=== PATIENT | female | born 1940 | race Two or more races ===

== ENCOUNTER 2017-07-22 14:51 | Emergency (ER) | payer OTHER ==
[~2017-07-22] VITALS: Ht 157.5 cm; Wt 65.0 kg
[2017-07-22] MEDS ORDERED: OMEP40CA2 PO (15:11)
[2017-07-22] MEDS ORDERED: BENA40TA7 PO (15:11)
[2017-07-22] MEDS ORDERED: SIMV40TA2 PO (15:11)
[2017-07-22] MEDS ORDERED: METF500T13 PO (15:11)
[2017-07-22] MEDS ORDERED: GLIP10TA6 PO (15:11)
[2017-07-22] MEDS ORDERED: LEVO75TA4 PO (15:11)
[2017-07-22] MEDS ORDERED: NS 1,000 ML IV ONE (16:15)
[2017-07-22] MEDS ORDERED: ACETAMINOPHEN 325 MG TAB PO ONE (16:15)
[2017-07-22] MEDS ORDERED: KETOROLAC 30 MG/ML VIAL (J1885) IV ONE (16:15)
--- NOTE | 2017-07-22 16:33 | REP ---
Chest two views HISTORY: Fever Comparison: None The lungs are clear. The heart is normal in size. The pulmonary vasculature is normal in appearance. The bony structure is intact. IMPRESSION: No acute disease. Signed by Hema Mccallum MD 07/22/2017 04:24 P
[2017-07-22 17:03] LABS: BASO % 0.3 % (0.0-1.0); EOS # 0.1 K/mm3 (0.0-0.50); EOS % 1.2 % (0.0-3.0); LARGE UNSTAINED CELL # 0.1 K/mm3 (0.0-0.4); LARGE UNSTAINED CELL % 0.6 % (0.0-4.0); LYMPH # 0.3 K/mm3 (1.5-4.5); LYMPH % 2.8 % (24.0-44.0); MEAN CORPUSCULAR HGB CONC 32.8 g/dl (32.0-36.5); MEAN CORPUSCULAR VOLUME 88.4 fl (80.0-96.0); MONO # 0.2 K/mm3 (0.0-0.8); MONO % 2.4 % (0.0-5.0); NEUTROPHILS # 8.9 K/mm3 (1.8-7.7); NEUTROPHILS % 92.6 % (36.0-66.0); PLATELET COUNT, AUTOMATED 198 k/mm3 (150-450); RED CELL DISTRIBUTION WIDTH 13.7 % (11.5-14.5); WHITE BLOOD COUNT 9.6 K/mm3 (4.0-10.0)
[2017-07-22 17:27] LABS: CALCIUM LEVEL 8.6 MG/DL (8.8-10.2); CREATININE FOR GFR 1.17 MG/DL (0.55-1.02); GLOMERULAR FILTRATION RATE 47.7 (>39); POTASSIUM SERUM 3.7 MEQ/L (3.5-5.1)
--- NOTE | 2017-07-22 17:54 | REP ---
CT Head without contrast HISTORY: Headache COMPARISON: None There is no intraparenchymal hemorrhage, acute infarct, mass or midline shift. The ventricular system is normal in appearance. A small arachnoid cyst is present overlying the anterior left frontal lobe. This measures 2.4 cm in transverse by 1.1 cm in AP dimensions. There is no subdural fluid l collection. There is no fracture. The visualized sinuses are clear. IMPRESSION: 1. There is no intracranial lesion. 2. There is a small arachnoid cyst overlying the anterior left frontal lobe. Signed by Hema Mccallum MD 07/22/2017 05:46 P
[2017-07-22] MEDS ORDERED: diphenhydrAMINE INJ 50MG/ML VIAL (J1200) IV STA (19:33)
[2017-07-22] MEDS ORDERED: ISOVUE-370 76% 100ML VIAL (Q9967) As Ordered ONE (19:41)
[2017-07-22] MEDS ORDERED: CIPROFLOXACIN 500 MG TAB PO ONE (19:45)
[2017-07-22] MEDS ORDERED: METOCLOPRAMIDE INJ 10MG/2ML VIAL (J2765) IV ONE (19:45)
--- NOTE | 2017-07-22 20:10 | REPUSA ---
Clinical history: headache. Technique: Multiple axial CT images were obtained through the head after a bolus of nonionic intraven ous contrast. Coronal and sagittal reconstructed images were also obtained. Findings: The intracerebral arterial structures including the [place], as well as the distal carotid and vertebrobasilar arterial systems, demonstrate normal caliber and contour. There is no ev idence of aneurysm, stenosis, or thrombosis. No abnormal enhancing mass lesions are seen within the b rain. The ventricles and sulci are symmetric bilaterally. There is no midline shift, mass effect, or extra-axial fluid collection. The osseous structures are unremarkable. The visualized paranasal sinus es and mastoid air cells are clear. Impression: Unremarkable CT angiogram of the head.
[2017-07-22] MEDS ORDERED: CIPR-249 PO (20:21)
[2017-07-22 20:25] VITALS: BP 122/54
--- NOTE | 2017-07-23 07:58 | ED PDOC ---
Post-Departure Follow-Up dr rogel faxed formal report of ct head for fu Mil Valderrama MD Jul 23, 2017 07:58
--- NOTE | 2017-07-24 08:21 | ECGEPIP ---
Stationary ECG Study [facility] - ED Test Date: 2017-07-22 Pat Name: CHRIS MORALES Department: Room: - Gender: F Buying Intern: kelsey : 1940 Requested By: ZENY Doyle PA-C Order Number: [id number] Reading MD: Sophia Gr Measurements Intervals Picher Rate: 89 P: -1 SD: 152 QRS: 30 QRSD: 92 T: 17 QT: 361 QTc: 441 Interpretive Statements SINUS RHYTHM NSTTW ABNORMALITY NO PRIOR FOR COMPARISON Electronically Signed On 07-24-2017 8:21:01 EDT by Sophia Gr
== END 2017-07-22 20:32 | disposition home or self-care (01) ==
LOC: M ED 14:51
DX: N30.90 Cystitis, unspecified without hematuria (principal); R51 Headache; G93.0 Cerebral cysts; E11.9 Type 2 diabetes mellitus without complications; I10 Essential (primary) hypertension; Z79.84 Long term (current) use of oral hypoglycemic drugs; Z79.899 Other long term (current) drug therapy
CPT/HCPCS: 70450; 70496; 71020; 80048; 81001; 82550; 82553; 84443; 84484; 85025; 87040; 87077; 87086; 87186; 87880; 93005; 96374; 96375; 99284; G0463; J1200; J1885; J2765; Q9967

== ENCOUNTER → 2017-07-22 | Outpatient (REF) | payer OTHER ==
[~2017-07-22] MED LIST: BACT800T5 PO; BENA40TA7 PO; CIPR-249 PO; GLIP10TA6 PO; LEVO75TA4 PO; METF500T13 PO; OMEP40CA2 PO; SIMV40TA2 PO; TYLE325T5 PO; ZOFR4TAB3 PO
== END ==
LOC: M SFHCLERA 13:34
PROVIDERS: ATTEND Nurse Practitioner Family
DX: R51 Headache (principal)

== ENCOUNTER 2017-08-07 14:10 | Emergency (ER) | payer OTHER ==
[~2017-08-07] VITALS: Ht 157.5 cm; Wt 65.2 kg
[~2017-08-07 14:10] MED LIST changes: -BACT800T5 PO; -TYLE325T5 PO; -ZOFR4TAB3 PO
[2017-08-07] MEDS ORDERED: ACETAMINOPHEN 325 MG TAB PO ONE (14:45)
[2017-08-07] MEDS ORDERED: LR 1,000 ML IV ONE (15:45)
[2017-08-07 16:17] LABS: BASO % 0.2 % (0.0-1.0); EOS # 0.1 K/mm3 (0.0-0.50); LARGE UNSTAINED CELL # 0.1 K/mm3 (0.0-0.4); LARGE UNSTAINED CELL % 0.7 % (0.0-4.0); LYMPH # 0.6 K/mm3 (1.5-4.5); LYMPH % 6.6 % (24.0-44.0); MEAN CORPUSCULAR HEMOGLOBIN 28.8 pg (27.0-33.0); MEAN CORPUSCULAR HGB CONC 32.1 g/dl (32.0-36.5); MEAN CORPUSCULAR VOLUME 89.7 fl (80.0-96.0); MONO # 0.3 K/mm3 (0.0-0.8); MONO % 3.7 % (0.0-5.0); NEUTROPHILS # 7.2 K/mm3 (1.8-7.7); NEUTROPHILS % 87.9 % (36.0-66.0); PLATELET COUNT, AUTOMATED 252 k/mm3 (150-450); WHITE BLOOD COUNT 8.2 K/mm3 (4.0-10.0)
[2017-08-07 16:39] LABS: ALBUMIN 3.4 GM/DL (3.2-5.2); ALBUMIN/GLOBULIN RATIO 0.89 (1.00-1.93); ALKALINE PHOSPHATASE 299 U/L (45-117); ALT/SGPT 467 U/L (12-78); ANION GAP 8 MEQ/L (8-16); AST/SGOT 202 U/L (15-37); BILIRUBIN,TOTAL 3.1 MG/DL (0.2-1.0); BLOOD UREA NITROGEN 11 MG/DL (7-18); CALCIUM LEVEL 9.4 MG/DL (8.8-10.2); CARBON DIOXIDE LEVEL 26 MEQ/L (21-32); CHLORIDE LEVEL 105 MEQ/L (98-107); CREATININE FOR GFR 0.66 MG/DL (0.55-1.02); GLOMERULAR FILTRATION RATE > 60.0 (>39); GLUCOSE, FASTING 143 MG/DL (83-110); POTASSIUM SERUM 3.7 MEQ/L (3.5-5.1); SODIUM LEVEL 139 MEQ/L (136-145); TOTAL PROTEIN 7.2 GM/DL (6.4-8.2)
[2017-08-07] MEDS ORDERED: TRIMETHOPRIM/SULFAMETHOXAZOLE 160 MG in D5W 500 ML IV SCH (17:15)
[2017-08-07] MEDS ORDERED: ONDANSETRON 4MG/2ML VIAL (J2405) IV ONE (17:15)
[2017-08-07] MEDS ORDERED: BACTRIM 160MG/800MG DS TAB PO ONE (17:30)
[2017-08-07] MEDS ORDERED: NAPROXEN 250 MG TAB PO ONE (17:30)
[2017-08-07] MEDS ORDERED: BACT800T5 PO (17:55)
[2017-08-07] MEDS ORDERED: TYLE325T5 PO (17:55)
[2017-08-07] MEDS ORDERED: ZOFR4TAB3 PO (17:56)
[2017-08-07 18:22] VITALS: BP 153/93
== END 2017-08-07 18:24 | disposition home or self-care (01) ==
LOC: M ED 14:10
DX: N39.0 Urinary tract infection, site not specified (principal); I10 Essential (primary) hypertension; E78.00 Pure hypercholesterolemia, unspecified; K21.9 Gastro-esophageal reflux disease without esophagitis; E11.9 Type 2 diabetes mellitus without complications; E03.9 Hypothyroidism, unspecified; M19.90 Unspecified osteoarthritis, unspecified site; F32.9 Major depressive disorder, single episode, unspecified; Z79.899 Other long term (current) drug therapy; Z79.84 Long term (current) use of oral hypoglycemic drugs
CPT/HCPCS: 36415; 80053; 81001; 83605; 85025; 87040; 87088; 87186; 96361; 96374; 99284; J2405